=== PATIENT | male | born 1975 | race Caucasian/White ===

== ENCOUNTER 2020-05-16 02:30 | Emergency (ER) | payer MEDICAID, OTHER ==
--- NOTE | 2020-05-16 03:22 | EDM.PDOC ---
ED HPI GENERAL MEDICAL PROBLEM - General Time Seen by Provider: 05/16/20 02:40 Source of Information: Reports: Patient History Limitations: Reports: No Limitations - History of Present Illness INITIAL COMMENTS - FREE TEXT/NARRATIVE: Pt. presents to ER with complaints of suicidal ideation. Pt. waved down police, stating that he wanted to harm himself. Pt. states that he was discharged from [facility] earlier today. He has been hospitalized there since 05/04/2020 for suicidal ideation and alcohol treatment. He states that he has been under increased stress recently, due to money problems and losing his residence. He had been caring for his Grandmother who was providing him a place to live, but she was recently placed in the half-way, and she needs her money to pay for this. Pt. states that he will be homeless within the next week or so. Pt. does not work, but he is not disabled. Pt. states that his hospitalization an [facility] was not helpful. He states that he was still depressed and very anxious when he was discharged. He states that he has medicaid, and this inpatient days ran out, resulting in his discharge. He states that he took a bus out of [place] which did not go past [place]. He states that he became more depressed and anxious as he walked around [facility] and subsequently ended up here via PD. Pt. has a history of alcoholism and frequent meth use. Last drink was 1 week ago. Last meth use 2 weeks ago. He has previously been hospitalized twice in [facility] and twice at [facility]. He refuses to return to [facility]. Location: Reports: Generalized - Related Data Allergies Allergy/AdvReac Type Severity Reaction Status Date / Time almond Allergy Airway Verified 05/16/20 03:02 Tightness cats Allergy Mild Airway Uncoded 05/16/20 03:02 Tightness dogs Allergy Mild Airway Uncoded 05/16/20 03:02 Tightness dust Allergy Mild Airway Uncoded 05/16/20 03:02 Tightness molds Allergy Mild Airway Uncoded 05/16/20 03:02 Tightness Home Meds: Home Meds Albuterol [Ventolin HFA] 2 puff IH Q2HR PRN 06/06/14 [History] QUEtiapine Fumarate [Seroquel] 75 mg PO TID 05/16/20 [History] Sertraline [Zoloft] 150 mg PO DAILY 05/16/20 [History] Past Medical History HEENT History: Reports: Impaired Vision, Other (See Below) Other HEENT History: Glasses Cardiovascular History: Reports: None Respiratory History: Reports: Asthma Gastrointestinal History: Reports: Other (See Below) (Gastritis) Genitourinary History: Reports: None Psychiatric History: Reports: Addiction, Anxiety, Depression, Panic Attack, Suicidal Ideation Endocrine/Metabolic History: Reports: Diabetes, Type II - Past Surgical History Musculoskeletal Surgical History: Reports: Other (See Below) Other Musculoskeletal Surgeries/Procedures:: Left foot crushed in auger "years ago" which required surgical intervention. Social & Family History - Family History Family Medical History: Noncontributory - Living Situation & Occupation Living situation: Reports: with Family Occupation: Employed ED ROS GENERAL - Review of Systems Review Of Systems: See Below Constitutional: Reports: No Symptoms HEENT: Reports: No Symptoms Respiratory: Reports: No Symptoms Cardiovascular: Reports: No Symptoms Endocrine: Reports: No Symptoms GI/Abdominal: Reports: No Symptoms : Reports: No Symptoms Musculoskeletal: Reports: No Symptoms Skin: Reports: No Symptoms Neurological: Reports: No Symptoms Psychiatric: Reports: Anxiety, Depression, Suicidal Ideation. Denies: Hallucinations Hematologic/Lymphatic: Reports: No Symptoms Immunologic: Reports: No Symptoms ED EXAM, GENERAL - Physical Exam Exam: See Below Exam Limited By: No Limitations General Appearance: Alert, WD/WN, No Apparent Distress Eye Exam: Bilateral Eye: EOMI, Normal Fundi, Normal Inspection, PERRL Head: Atraumatic, Normocephalic Respiratory/Chest: No Respiratory Distress, Lungs Clear, Normal Breath Sounds, No Accessory Muscle Use, Chest Non-Tender Cardiovascular: Normal Peripheral Pulses, Regular Rate, Rhythm, No Edema, No Gallop, No JVD, No Murmur, No Rub Peripheral Pulses: 4+: Radial (L) GI/Abdominal: Normal Bowel Sounds, Soft, Non-Tender, No Distention, No Mass (Male) Exam: Deferred Rectal (Males) Exam: Deferred Back Exam: Normal Inspection Extremities: Normal Inspection, Normal Capillary Refill Neurological: Alert, Oriented, CN II-XII Intact, Normal Cognition, Normal Gait, Normal Reflexes, No Motor/Sensory Deficits Psychiatric: Anxious, Depressed Mood, Flat Affect, Tearful Skin Exam: Warm, Dry, Intact, Normal Color, No Rash Lymphatic: No Adenopathy Course - Vital Signs Last Recorded V/S: Last Vital Signs Temp 36.3 C 05/16/20 02:30 Pulse 94 05/16/20 02:30 Resp 22 H 05/16/20 02:30 BP 126/80 05/16/20 02:30 Pulse Ox 96 05/16/20 02:30 - Orders/Labs/Meds Labs: Laboratory Tests 05/16/20 05/16/20 05/16/20 Range/Units 03:15 03:15 03:19 WBC 7.6 (4.0-10.0) x10^3/uL RBC 4.36 L (4.5-6.0) x10^6/uL Hgb 13.6 L (14.0-18.0) g/dL Hct 39.0 L (40.0-52.0) % MCV 89.4 (78.0-93.0) fL MCH 31.2 (26.0-32.0) pg MCHC 34.9 (32.0-36.0) g/dL RDW Coeff of Elida 12.6 (10.0-15.0) % Plt Count 221 (130-400) x10^3/uL Neut % (Auto) 52.2 (50.0-80.0) % Lymph % (Auto) 30.5 (25.0-50.0) % Yancey % (Auto) 12.3 H (2.0-11.0) % Eos % (Auto) 4.1 H (0.0-4.0) % Baso % (Auto) 0.9 (0.2-1.2) % PT (9.5-12.3) SEC INR (2.0-3.5) Sodium (136-145) mmol/L Potassium (3.5-5.1) mmol/L Chloride (98-107) mmol/L Carbon Dioxide (21-32) mmol/L Anion Gap (10-20) mmol/L BUN (7-18) mg/dL Creatinine (0.70-1.30) mg/dL Est Cr Clr Drug Dosing mL/min Estimated GFR (MDRD) Glucose (74-106) mg/dL Calcium (8.5-10.1) mg/dL Corrected Calcium (8.5-10.1) mg/dL Magnesium (1.8-2.4) mg/dL Total Bilirubin (0.2-1.0) mg/dL AST (15-37) U/L ALT (16-63) U/L Alkaline Phosphatase (46-116) U/L Total Protein (6.4-8.2) g/dL Albumin (3.4-5.0) g/dL Globulin Albumin/Globulin Ratio TSH, Ultra Sensitive (0.358-3.74) uIU/mL Urine Color Yellow (YELLOW) Urine Appearance Clear (CLEAR) Urine pH 6.0 (5.0-8.0) Ur Specific [place] 1.025 Urine Protein Negative (NEGATIVE) mg/dL Urine Glucose (UA) Negative (NEGATIVE) mg/dL Urine Ketones Negative (NEGATIVE) mg/dL Urine Occult Blood Negative (NEGATIVE) Urine Nitrite Negative (NEGATIVE) Urine Bilirubin Negative (NEGATIVE) Urine Urobilinogen 0.2 (0.2) EU/dL Ur Leukocyte Esterase Negative (NEGATIVE) Urine Opiates Screen Negative (NEGATIVE) Ur Buprenorphine Scrn Negative (NEGATIVE) Ur Oxycodone Screen Negative (NEGATIVE) Ur EDDP (Meth Metab) Negative (NEGATIVE) Urine Methadone Screen Negative (NEGATIVE) Acetaminophen (10-30) ug/ml Ur Barbituates Screen Negative (NEGATIVE) Ur Tricyclics Screen Negative (NEGATIVE) Ur Phencyclidine Scrn Negative (NEGATIVE) Ur Amphetamines Screen Negative (NEGATIVE) U Methamphetamines Scrn Negative (NEGATIVE) Urine MDMA Screen Negative (NEGATIVE) U Benzodiazepines Scrn Negative (NEGATIVE) Urine Cocaine Screen Negative (NEGATIVE) U Marijuana (THC) Screen Negative (NEGATIVE) Ethyl Alcohol (0-3) mg/dL 05/16/20 05/16/20 Range/Units 03:19 03:19 WBC (4.0-10.0) x10^3/uL RBC (4.5-6.0) x10^6/uL Hgb (14.0-18.0) g/dL Hct (40.0-52.0) % MCV (78.0-93.0) fL MCH (26.0-32.0) pg MCHC (32.0-36.0) g/dL RDW Coeff of Elida (10.0-15.0) % Plt Count (130-400) x10^3/uL Neut % (Auto) (50.0-80.0) % Lymph % (Auto) (25.0-50.0) % Yancey % (Auto) (2.0-11.0) % Eos % (Auto) (0.0-4.0) % Baso % (Auto) (0.2-1.2) % PT 9.9 (9.5-12.3) SEC INR 0.9 L (2.0-3.5) Sodium 139 (136-145) mmol/L Potassium 4.2 (3.5-5.1) mmol/L Chloride 104 (98-107) mmol/L Carbon Dioxide 26 (21-32) mmol/L Anion Gap 13.2 (10-20) mmol/L BUN 22 H (7-18) mg/dL Creatinine 1.1 (0.70-1.30) mg/dL Est Cr Clr Drug Dosing 95.04 mL/min Estimated GFR (MDRD) > 60 Glucose 78 (74-106) mg/dL Calcium 8.6 (8.5-10.1) mg/dL Corrected Calcium 8.52 (8.5-10.1) mg/dL Magnesium 1.8 (1.8-2.4) mg/dL Total Bilirubin 0.6 (0.2-1.0) mg/dL AST 21 (15-37) U/L ALT 33 (16-63) U/L Alkaline Phosphatase 80 (46-116) U/L Total Protein 6.9 (6.4-8.2) g/dL Albumin 4.1 (3.4-5.0) g/dL Globulin 2.8 Albumin/Globulin Ratio 1.46 TSH, Ultra Sensitive 3.182 (0.358-3.74) uIU/mL Urine Color (YELLOW) Urine Appearance (CLEAR) Urine pH (5.0-8.0) Ur Specific [place] Urine Protein (NEGATIVE) mg/dL Urine Glucose (UA) (NEGATIVE) mg/dL Urine Ketones (NEGATIVE) mg/dL Urine Occult Blood (NEGATIVE) Urine Nitrite (NEGATIVE) Urine Bilirubin (NEGATIVE) Urine Urobilinogen (0.2) EU/dL Ur Leukocyte Esterase (NEGATIVE) Urine Opiates Screen (NEGATIVE) Ur Buprenorphine Scrn (NEGATIVE) Ur Oxycodone Screen (NEGATIVE) Ur EDDP (Meth Metab) (NEGATIVE) Urine Methadone Screen (NEGATIVE) Acetaminophen 0 L (10-30) ug/ml Ur Barbituates Screen (NEGATIVE) Ur Tricyclics Screen (NEGATIVE) Ur Phencyclidine Scrn (NEGATIVE) Ur Amphetamines Screen (NEGATIVE) U Methamphetamines Scrn (NEGATIVE) Urine MDMA Screen (NEGATIVE) U Benzodiazepines Scrn (NEGATIVE) Urine Cocaine Screen (NEGATIVE) U Marijuana (THC) Screen (NEGATIVE) Ethyl Alcohol < 3 (0-3) mg/dL Departure - Departure Time of Disposition: 04:17 Disposition: DC/Tfer to [facility] Clinical Impression: Anxiety, Suicidal ideation - Discharge Information Sepsis Event Note (ED) - Focused Exam Vital Signs: Vital Signs Temp Pulse Resp BP Pulse Ox 05/16/20 02:30 36.3 C 94 22 H 126/80 96 - Problem List Review Problem List Initiated/Reviewed/Updated: Yes - Assessment/Plan Plan: Spoke with eleanor Jean at [facility]. Pt. spoke with her as well. Pt. will be going to the [facility]. He will be transported via [facility]. All questions were answered.
[2020-05-16 03:23] VITALS: BP 126/80; PULSE 94
[2020-05-16 03:34] LABS: BUPRENORPHINE,URINE NEGATIVE (NEGATIVE); MARIJUANA,URINE NEGATIVE (NEGATIVE); METHYLENEDIOXYMETHAMP,UR NEGATIVE (NEGATIVE); PHENCYCLIDINE,URINE NEGATIVE (NEGATIVE)
[2020-05-16 03:54] LABS: CHLORIDE,CL 104 mmol/L (98-107); SODIUM,NA 139 mmol/L (136-145)
[2020-05-16 03:57] LABS: ACETAMINOPHEN 0 ug/ml (10-30); ANION GAP 13.2 mmol/L (10-20)
[2020-05-16] MEDS ORDERED: hydrOXYzine HCl 25 MG Tab PO ONE (04:25)
== END 2020-05-16 04:43 ==
LOC: VM.ED 02:30
DX: F32.9 Major depressive disorder, single episode, unspecified (principal); F41.9 Anxiety disorder, unspecified; E11.9 Type 2 diabetes mellitus without complications; J45.909 Unspecified asthma, uncomplicated; Z91.048 Other nonmedicinal substance allergy status; Z91.018 Allergy to other foods; Z79.899 Other long term (current) drug therapy
CPT/HCPCS: 36415; 80053; 80305-QW; 80307; 81003; 83735; 84443; 85025; 85610; 99285; A9270-GY